=== PATIENT | male | born 1995 | race Caucasian/White ===

== ENCOUNTER 2017-01-10 18:46 | Emergency (ER) | payer BC ==
[~2017-01-10] VITALS: Ht 185.4 cm; Wt 102.7 kg
[~2017-01-10 18:46] MED LIST: BACTRIM,SEPT1 TABLET PO; KEFLEX500 MG PO; MAXAIR AUTOHALE14 GM IH; NORCO 5/3251 TABLET PO
[2017-01-10 21:10] VITALS: BP 136/77
== END 2017-01-10 21:11 | disposition home or self-care (01) ==
LOC: EME 18:46
PROC: 0RSJXZZ Reposition Right Shoulder Joint, External Approach (ICD-10-PCS; principal; 2017-01-10)
DX: S43.004A Unspecified dislocation of right shoulder joint, initial encounter (principal); W01.0XXA Fall on same level from slipping, tripping and stumbling without subsequent striking against object, initial encounter; Y93.89 Activity, other specified
CPT/HCPCS: 73020; 73030; 99281; 99284; J7030